=== PATIENT | female | born 1990 | race Caucasian/White ===

== ENCOUNTER 2019-08-22 22:52 | Emergency (ER) | payer BC ==
[~2019-08-22] VITALS: Ht 162.6 cm; Wt 63.5 kg
[2019-08-22] MEDS ORDERED: LIDOCAINE HCL 2% 20 ML VIAL TP ONE (23:30)
--- NOTE | 2019-08-22 23:41 | NUR ---
Patient discharged to home in stable conditon. Written and verbal after care instructions given. Patient verbalizes understanding of instructions. Pt's laceration to left hand sutured by Dr. Gill. Pt left ER in stable condition with family members. No acute distress noted. Vital signs stable. Respirations even + unlabored.
[2019-08-22 23:43] VITALS: BP 122/77
== END 2019-08-22 23:43 | disposition home or self-care (01) ==
LOC: ER 22:55
DX: S61.412A Laceration without foreign body of left hand, initial encounter (principal); W25.XXXA Contact with sharp glass, initial encounter; Y93.89 Activity, other specified; Y92.89 Other specified places as the place of occurrence of the external cause; Y99.8 Other external cause status
CPT/HCPCS: A4663